=== PATIENT | female | born 1945 | race Caucasian/White ===

== ENCOUNTER 2019-08-09 08:44 | Emergency (ER) | payer SELFPAY ==
[~2019-08-09] VITALS: Ht 147.3 cm; Wt 52.2 kg
[2019-08-09] MEDS ORDERED: IV NS 0.9% 500 ML BAG IV ONE (09:00)
[2019-08-09] MEDS ORDERED: PRED1TAB PO (09:03)
[2019-08-09] MEDS ORDERED: ESOM20CA PO (09:03)
[2019-08-09] MEDS ORDERED: LOSA50TA39 PO (09:03)
[2019-08-09] MEDS ORDERED: ASPI-1169 PO (09:03)
[2019-08-09] MEDS ORDERED: ERGO500014 PO (09:03)
[2019-08-09] MEDS ORDERED: LATA2.5D7 RIGHTEYE (09:03)
[2019-08-09] MEDS ORDERED: METO25TA20 PO (09:03)
[2019-08-09] MEDS ORDERED: MAG30ORA PO (09:03)
[2019-08-09] MEDS ORDERED: POTA99TA14 PO (09:04)
--- NOTE | 2019-08-09 09:08 | NUR ---
PATIENT [id number] FRM HOME, PER REPORT POS SYNCOPAL EPISODE. C/O L RIB AREA PAIN NO OBVIOUS TRAUMA NOTED. [id number]. ON ROM AIR, BREATHING EVENLY AND UNLABORED. CONNECTED TO THE MONITOR AND PULSE OX. KEPT COMFORTABLE, WILL CONTINUE TO MONITOR ACCORDINGLY.
[2019-08-09 09:10] LABS: CALCIUM, SERUM 8.8 mg/dL (8.5-10.1); CARBON DIOXIDE 27 mmol/L (21-32); CHLORIDE 101 mmol/L (98-107); CREATININE 0.9 mg/dL (0.6-1.3); GLUCOSE 143 mg/dL (74-106); SODIUM SERUM 136 mmol/L (136-145); UREA NITROGEN, BLOOD 9 mg/dL (7-18)
[2019-08-09 09:12] LABS: BASOPHILS % (AUTO) 0.4 % (0.0-2.0); EOSINOPHILS % (AUTO) 2.2 % (0.0-6.0); HEMATOCRIT 34 % (33-45); HEMOGLOBIN 11.1 g/dL (11.5-14.8); LYMPHOCYTES # (AUTO) 0.8 /CMM (0.8-4.8); LYMPHOCYTES % (AUTO) 13.2 % (20.0-44.0); MEAN CORPUSCULAR HGB CONC 33 g/dl (31.0-36.0); MEAN CORPUSCULAR VOLUME 80 fL (82-100); MONOCYTES # (AUTO) 0.4 /CMM (0.1-1.30); MONOCYTES % (AUTO) 5.7 % (2.0-12.0); NEUTROPHILS % (AUTO) 78.5 % (43.0-81.0); PLATELET COUNT (AUTO) 218 /CMM (150-450); RED BLOOD CELL COUNT(AUTO) 4.22 MIL/uL (4.0-5.2); WHITE BLOOD COUNT (AUTO) 6.4 K/uL (4.3-11.0)
[2019-08-09 09:16] LABS: ALANINE AMINOTRANSFERASE 15 U/L (12-78); ALBUMIN 3.3 g/dL (3.4-5.0); ALKALINE PHOSPHATASE 117 U/L (46-116); ASPARTATE AMINOTRANSFERASE 17 U/L (15-37); BILIRUBIN,DIRECT 0.1 mg/dL (0.0-0.2); BILIRUBIN,TOTAL 0.6 mg/dL (0.2-1.0); LIPASE 112 U/L (73-393); TOTAL PROTEIN, SERUM 6.9 g/dL (6.4-8.2)
[2019-08-09 10:29] VITALS: BP 122/66
--- NOTE | 2019-08-09 10:29 | NUR ---
Patient discharged to home in stable condition. Written and verbal after care instructions given. Patient verbalizes understanding of instruction.IV removed. Catheter intact and site benign. Pressure and 4x4 applied to site. No bleeding noted.
== END 2019-08-09 10:29 | disposition home or self-care (01) ==
LOC: ER 09:05
DX: S92.514A Nondisplaced fracture of proximal phalanx of right lesser toe(s), initial encounter for closed fracture (principal); R55 Syncope and collapse; I10 Essential (primary) hypertension; Z79.82 Long term (current) use of aspirin; Z79.899 Other long term (current) drug therapy; X58.XXXA Exposure to other specified factors, initial encounter; Y93.89 Activity, other specified; Y92.89 Other specified places as the place of occurrence of the external cause; Y99.8 Other external cause status
CPT/HCPCS: 36415; 71045; 73660; 80048; 80076; 83690; 84484; 85025; 85730; 93005; 96360; 99284; J7040